=== PATIENT | male | born 1980 | race Caucasian/White ===

== ENCOUNTER 2018-04-26 09:59 | Outpatient (CLI) | payer OTHER, SELFPAY ==
[2018-04-26 10:52] LABS: Abs Immature Grans 0.14 k/cumm (0.0-0.09); Absolute Eosinophil Count 0.19 k/cumm (0.0-0.7); Absolute Lymphocyte Count 1.75 k/cumm (1.2-3.4); Absolute Monocyte Count 0.54 k/cumm (0.11-0.7); Basophils % 0.2; Eosinophils % 1.5; HCT 47.8 % (40.0-50.0); HGB 16.4 g/dL (13.5-17.5); Immature Grans % 1.1; Lymphocytes % 13.6; Mean Corp. HGB Concentration 34.3 g/dL (32.0-36.0); Mean Corpuscular Hemoglobin 31.7 pg (27.0-33.0); Mean Corpuscular Volume 92.5 fL (80-95); Mean Platelet Volume 10.6 fL (8.0-11.0); Monocytes % 4.2; Neutrophils % 79.4; Platelet Count 198 x1000/uL (130-400); RBC 5.17 m/cumm (4.50-6.00); RBC Distribution Width 13.3 % (11.8-14.1); White Blood Cell Count 12.88 k/cumm (4.4-10.8)
[2018-04-26 10:53] LABS: Absolute Basophil Count 0.03 k/cumm (0.0-0.2); Absolute Neutrophil Count 10.23 k/cumm (1.2-6.7)
[2018-04-26 11:20] LABS: ALT 38 U/L (12-78); AST 15 U/L (15-37); Albumin 3.7 g/dL (3.4-5.0); Alkaline Phosphatase 60 U/L (46-116); BUN 15 mg/dL (7-18); Bilirubin, Total 0.6 mg/dL (0.2-1.0); Calcium 9.4 mg/dL (8.5-10.1); Chloride 103 mmol/L (98-107); Glucose 93 mg/dL (70-100); Potassium 4.2 mmol/L (3.5-5.1); Sodium 140 mmol/L (136-145); TSH (W/Ref FT4) 1.65 uIU/mL (0.358-3.74); Total Protein 7.1 g/dL (6.4-8.2)
[2018-04-26 11:30] LABS: T4 8.1 ug/dL (4.5-12.5)
[2018-04-26 22:26] LABS: T3, Total 134 ng/dl (97-169)
[2018-04-27 11:42] LABS: C3 Complement 149 mg/dL (81-157); C4 Complement 30 mg/dL (13-39)
[2018-04-27 11:55] LABS: Thyroglobulin Antibody 26 U/mL (<61); Thyroperoxidase Antibody 39 U/mL (<61)
[2018-04-27 11:58] LABS: dsDNA Ab, IgG <12.3 IU/mL (<30)
[2018-04-27 13:39] LABS: ANA Interpretation Negative (NEGAT)
[2018-04-27 16:56] LABS: C2 Complement, Functional 44 U/mL (25 - 47); Complement, Total 58 U/mL (30 - 75)
[2018-04-28 13:41] LABS: Complement C1q, S 19 mg/dL (12 - 22)
[2018-05-01 16:05] LABS: C1 Esterase Inhib, Functional >90 %of norm
== END 2018-04-26 10:19 ==
PROVIDERS: PCP Family Medicine; Visit Provider Nurse Practitioner Adult Health
DX: T78.3XXA Angioneurotic edema, initial encounter (principal)
CPT/HCPCS: 36415; 80053; 86376; 83520; 84436; 84443; 84480; 85025; 86038; 86160; 86161; 86162; 86225

== ENCOUNTER 2018-09-30 15:20 | Emergency (ER) | payer MEDICAID, SELFPAY ==
[2018-09-30 15:23] VITALS: BP 104/91; PULSE 125; RESP 18; TEMP 37.1; O2SAT 95
[2018-09-30] MEDS: diphenhydrAMINE 25 MG CAP 50 MG PO (15:56)
[2018-09-30] MEDS: predniSONE 40 MG, predniSONE 10 MG 50 MG PO (15:57)
[2018-09-30 16:14] VITALS: BP 113/67; PULSE 103; RESP 16; TEMP 36.8; O2SAT 98
--- NOTE | 2018-09-30 16:15 | W.ED.GENAD ---
Discharge Plan Disposition Patient Disposition: HOME Condition: Good Discharge Details Chief Complaint: RashLesion Clinical Impression: Hives, GERD (gastroesophageal reflux disease) Primary Care Provider: Juarez Palacios ED Provider: Judson Fernandez Home Meds and New Rx's Prescriptions: New prednisone 50 MG tablet 50 mg PO DAILY Qty: 5 RF: 0 epinephrine [EpiPen 2-Dago] 0.3 MG/0.3 ML auto-injector 0.3 mg IJ PRN PRNQty: 2 RF: 5 sucralfate [Carafate] 100 mg/mL suspension 10 ml PO QID Qty: 420 RF: 0 No Action Vyvanse 60 MG capsule 60 mg PO DAILY Qty: 30 RF: 0 Discharge Instructions Instructions: Urticaria (ED), Gastroesophageal Reflux Disease (ED) Additional Instructions: You have notable hives. Please continue to take 25 mg of Benadryl every 6 hours. Please take the steroid as directed. I will give you an EpiPen prescription, only uses if you have worsening of your symptoms in conjunction with throat swelling, difficulty breathing, severe unremitting GI diarrhea or persistent vomiting. If you do use the EpiPen return immediately for reassessment. Please avoid any spicy foods or tomato-based foods. Please take the Carafate for your mild esophageal reflux. We will set up a referral with the [facility] for dermatology. If you notice any worsening of your symptoms, or any new symptoms such as vomiting, diarrhea, fever, chills, shortness of breath, chest pain, numbness, weakness, or fainting , please return immediately to the emergency department for reevaluation. Please follow up with your primary care provider as soon as possible for reassessment and reevaluation. As always, it was a pleasure participating in your medical care today. Referrals: Juarez Palacios MD [Primary Care Provider] - Discharge Data Discharge Date/Time-TO BE ENTERED AT DEPARTURE: 09/30/18 16:27 Medical Decision Making Is a pleasant 38-year-old male who was recently released from residential who presents for evaluation of hives. The patient has had hives multiple times in his life over his body. His last ones have been present for the last few days. New medication is TXA which was prescribed by the residential system. Unknown reasoning for this. Exam demonstrates idiopathic urticarial lesions over his body. No oral or genital lesions. No current clinical evidence of staph scalded skin syndrome, erythema multiforme, erythema migrans, toxic epidermal necrolysis, Smith-Mook syndrome, Kawasaki-like rash, meningococcemia, pemphigus vulgaris, or necrotizing fasciitis. No medical evidence of anaphylaxis. No evidence of superimposed infection. Patient will be given an extended course of steroids, recommend continued antihistamines at home. We will give an EpiPen for general home use as he is probably a person who has a higher risk of anaphylaxis to other things. Currently there is no clinical evidence of anaphylaxis whatsoever. He was also complaining of some left upper quadrant abdominal pain. He was given a GI cocktail and had complete resolution of his symptoms. We will attempt to schedule outpatient dermatological follow-up. We discussed red flags which to return. I have extensively reviewed the treatment plan and discharge instructions with the patient and their family. I have addressed all patient concerns at this time. The patient and family was made aware of what symptoms to monitor for that would warrant a return to the emergency department. Discussed the plan with the patient and family, they demonstrate verbal understanding and agreement with our assessment and plan at this time. HPI General Date/Time Provider Initiated Documentation: 09/30/18 15:34. HPI Narrative: This is a 38-year-old male with a past medical history of chronic hives, who was recently just released from residential, who presents today for evaluation of hives. He states that over the past 6 to 8 months he has had occasional intermittent hives in residential. While in residential he was given intermittent prednisone, but states that more recently he was started on tranexamic acid, which was confirmed by his present prescription list. He is also on Vyvanse which she has been on for quite some time and is unchanged. He states that the hives are similar to previous exacerbations. He denies any aggravating components. He denies any recent long workouts, increase in temperatures, sweaty exercising, recent medication changes except for the TXA which was started not long ago, he denies any new detergents, creams or washes. He denies any lesions in his mouth or on his genitalia. He denies any lesions on his palms or soles. He denies any history of anaphylaxis. He states that although this episode of hives are fairly severe they have been this bad in the past. He has not seen a finished cloth examiner. He also does complain of mild left epigastric pain. He states that it is a burning-like sensation. Worsened with certain spicy food types. He has no other complaints at this time. Related Data Home Medications Medication Instructions Recorded Confirmed lisdexamfetamine [Vyvanse] 60 mg PO DAILY #30 tab-cap 03/09/16 epinephrine [Epipen 2-Dago] 0.3 mg IJ PRN PRN #2 auto.injct 09/30/18 prednisone 50 mg PO DAILY #5 tab 09/30/18 sucralfate [Carafate] 10 ml PO QID #420 ml 09/30/18 Previous Rx's Medication Instructions Recorded epinephrine [Epipen 2-Dago] 0.3 mg IJ PRN PRN #2 auto.injct 09/30/18 prednisone 50 mg PO DAILY #5 tab 09/30/18 sucralfate [Carafate] 10 ml PO QID #420 ml 09/30/18 Allergies Allergy/AdvReac Type Severity Reaction Status Date / Time No Known Allergies Allergy Unverified 09/30/18 15:27 General Stated Complaint: RashLesion KRISTINE: 3 Review of Systems Review of Systems All systems reviewed & are unremarkable except as noted in HPI and below PFSH Medical History ADHD (Acute) Fracture, mandible (Acute) Traumatic brain injury (Acute) Anxiety (Chronic) Family History Mother Asthma Father Emphysema lung Sister No problems noted. Grandfather No problems noted. Grandfather No problems noted. Grandmother Essential hypertension Grandmother No problems noted. Son No problems noted. Social History Smoking/Tobacco Use Status: Current every day Tobacco Type: cigarettes Alcohol Intake: never Substance use type: does not use Additional Social history: pt is not alone to assess privately Exam Narrative Exam Narrative: 1.Const: Well-nourished, Well-developed, appearing stated age 2.Eyes: PERRL, no conjunctival injection, and symmetrical lids. 3.ENT: Atraumatic external nose and ears. Moist MM. Neck: Symmetric, trachea midline, No thyromegaly. 4.CVS: +S1/S2, No murmurs or gallops. Peripheral pulses 2+ and equal in all extremities. Brisk capillary refill in all extremities. 5.RESP: Unlabored respiratory effort. Clear to auscultation bilaterally. No wheezes rales or rhonchi 6.GI: Soft, Nontender/Nondistended, No hepatosplenomegaly. No guarding or rebound. 7.MSK: Normocephalic/Atraumatic, Extremities w/o deformity or ttp No cyanosis or clubbing, Normal movement of all extremities 8.Skin: Warm, Dry. No lesions in the mouth, tongue, or in the posterior oropharynx. No lesions on the palms or soles. No lesions on the glans penis or the mucosa. Patient's body demonstrates large urticarial-like lesions that are well demarcated, no evidence of significant warmth. Diameter of lesions ranges from 10 cm 20 cm in various places. Areas are pruritic. Negative Nikolsky sign. No large vesicles or bulla. No palpable purpura. No oral lesions. No mucosal lesions. No evidence of severe cellulitis. No evidence of vaccine preventable rash. 9.Neuro: tibco developer II-XII grossly intact. Sensation grossly intact, no focal neurologic deficits. 10.Psych: (AAO) x3. Appropriate mood and affect Course Vital Signs Temperature 37.1 C 09/30/18 15:23 Pulse 125 H 09/30/18 15:23 Respiratory Rate 18 09/30/18 15:23 Blood Pressure 104/91 H 09/30/18 15:23 Pulse Oximetry 95 09/30/18 15:23 Temperature 36.8 C 09/30/18 16:14 Temperature Source Temporal Artery Scan 09/30/18 16:14 Pulse 103 H 09/30/18 16:14 Respiratory Rate 16 09/30/18 16:14 Respiratory Effort 09/30/18 15:26 Blood Pressure 113/67 09/30/18 16:14 Pulse Oximetry 98 09/30/18 16:14 Oxygen Delivery Method Room Air 09/30/18 16:14 Oxygen Flow Rate 0 09/30/18 16:14 Pain Level 10 09/30/18 15:23
--- NOTE | 2018-10-03 12:37 | PDOC.ERCMPRO ---
Care Management Progress Note 10/03-Dr. Fernandez requested assistance with a dermatology appt as soon as possible for hives. Patients PCP is Dr. Palacios. Referral faxed to [facility] requesting they make the dermatology follow up.
== END 2018-09-30 16:27 | disposition home or self-care (01) ==
PROVIDERS: Emergency Provider Student in an Organized Health Care Education/Training Program; PCP Family Medicine
DX: L50.1 Idiopathic urticaria (principal); K21.9 Gastro-esophageal reflux disease without esophagitis; R10.12 Left upper quadrant pain
CPT/HCPCS: 99283; J7512

== ENCOUNTER 2018-10-11 13:50 | Outpatient (CLI) | payer MEDICAID, SELFPAY ==
[2018-10-11 14:56] LABS: C-Reactive Protein 0.55 mg/dL (0.0-0.3)
[2018-10-11 15:14] LABS: ESR 10 MM/HR (0-15)
[2018-10-12 09:52] LABS: HCT 45.3 % (40.0-50.0); HGB 15.3 g/dL (13.5-17.5); Mean Corp. HGB Concentration 33.8 g/dL (32.0-36.0); Mean Corpuscular Hemoglobin 31.1 pg (27.0-33.0); Mean Corpuscular Volume 92.1 fL (80-95); Mean Platelet Volume 11.2 fL (8.0-11.0); Platelet Count 269 x1000/uL (130-400); RBC 4.92 m/cumm (4.50-6.00); RBC Distribution Width 14.1 % (11.8-14.1); White Blood Cell Count 13.67 k/cumm (4.4-10.8)
[2018-10-12 10:03] LABS: ALT 53 U/L (12-78); AST 26 U/L (15-37); Albumin 2.8 g/dL (3.4-5.0); Alkaline Phosphatase 74 U/L (46-116); Anion Gap 12.6 mmol/L (3-11); BUN 17 mg/dL (7-18); Bilirubin, Total 0.4 mg/dL (0.2-1.0); CO2 24.4 mmol/L (21.0-32.0); CREATININE 0.94 mg/dL (0.70-1.30); Calcium 9.3 mg/dL (8.5-10.1); Chloride 103 mmol/L (98-107); Glucose 117 mg/dL (70-100); Sodium 140 mmol/L (136-145)
[2018-10-12 12:37] LABS: Hepatitis C Ab w Rflx HCV PCR Negative (NEGAT)
== END 2018-10-11 14:10 ==
PROVIDERS: PCP Family Medicine
DX: T78.40XA Allergy, unspecified, initial encounter (principal); B18.2 Chronic viral hepatitis C
CPT/HCPCS: 36415; 80053; 85027; 85652; 86803; 86140

== ENCOUNTER 2019-03-05 12:57 | Emergency (ER) | payer MEDICAID, SELFPAY ==
[2019-03-05 12:59] VITALS: BP 124/71; PULSE 92; TEMP 36.7; O2SAT 98
--- NOTE | 2019-03-05 13:24 | W.ED.GENAD ---
Discharge Plan Disposition Patient Disposition: HOME Condition: Stable Discharge Details Chief Complaint: DentalOral Clinical Impression: Dental infection Primary Care Provider: Guru John ED Provider: Yessenia Castillo Home Meds and New Rx's Prescriptions: New penicillin V potassium 500 mg tablet 500 mg PO QID Qty: 27 RF: 0 Continued albuterol sulfate [Ventolin HFA] 90 mcg/actuation HFA aerosol inhaler 2 puff IH Q4H PRN (Reason: shortness of breath or wheezing) Qty: 8.5 RF: 1 cetirizine 10 mg tablet 10 mg PO DAILY Qty: 90 RF: 3 Vyvanse 60 mg capsule 60 mg PO QAM MDD 60mg Qty: 30 RF: 0 montelukast [Singulair] 10 mg tablet 10 mg PO QPM Qty: 90 RF: 3 epinephrine [EpiPen 2-Dago] 0.3 MG/0.3 ML auto-injector 0.3 mg IJ PRN PRNQty: 2 RF: 5 ibuprofen [Advil] 200 mg Tablet 1,000 mg PO PRN PRNRF: 0 Discharge Instructions Instructions: Penicillin V (By mouth), Oxycodone/Acetaminophen (By mouth), Dental Abscess (ED) Additional Instructions: Please return immediately to the emergency department if you develop any new or worsening symptoms or if you become otherwise concerned. It is extremely important that you attend your scheduled appointment with your dentist tomorrow morning, and also that you call soon as possible to make an appointment to be seen in follow-up for this visit by her primary care doctor. You have been given 1 Percocet in the emergency department and 1 to bring home and takes night at bedtime. Do not take the Percocet within 6 hours of being given the first dose in the emergency department, I do not take with any other sedating medications. Do not drive, operate machinery, or make important decisions while taking Percocet. Do not take any additional Tylenol while taking Percocet. Stand Alone Forms: Work Release Referrals: Guru John [Primary Care Provider] - Discharge Data Discharge Date/Time-TO BE ENTERED AT DEPARTURE: 03/05/19 14:15 Medical Decision Making Kali erazo a 38-year-old man with a history of asthma, urticaria presenting to the emergency department with dental pain since yesterday and previously broken tooth. On exam patient is well and nontoxic appearing. Poor dentition throughout, tooth 7 broken and discolored with erythema of the surrounding gingiva, no fluctuance or edema, no discharge. No other intraoral lesion. Grossly nonfocal on neurologic exam. Concern for dental infection. Exam/history is not consistent with abscess or other deep space infection, meningitis, impending airway compromise. Plan for penicillin. Will give 1 Percocet here, patient is accompanied by his girlfriend he will give more at home, and one Percocet to take tonight at bedtime. I had a lengthy discussion with patient regarding safe opiate use, home care, return to emergency department precautions including red flags for which to return, and importance of outpatient follow-up. Patient verbalized understanding of the plan was amenable. All questions were answered. Medical Records Medical records reviewed: Yes I reviewed the patient's medical records. HPI General Mode of arrival: ambulatory. Date/Time Provider Initiated Documentation: 03/05/19 13:24. Limitations to Documentation: no limitations. Information obtained by: patient, RN notes reviewed and old records reviewed. HPI Narrative: Kali Dickinson is a 38-year-old man with a history of asthma, urticaria presenting to the emergency department dental pain. Patient reports that he has poor dentition, and broke 1 of his front teeth in the past. Patient reports that he has a dental appointment for this scheduled for 745 tomorrow morning. He reports that yesterday he developed severe pain in this tooth that radiates into his cheek. He denies any other pain, fevers, shortness of breath, cough, vomiting, diarrhea, numbness, weakness, visual changes, difficulty swallowing. Has been eating and drinking as usual without issue. No recent illness. Related Data Home Medications Medication Instructions Recorded Confirmed epinephrine [EpiPen 2-Dago] 0.3 mg IJ PRN PRN #2 auto.injct 09/30/18 03/05/19 albuterol sulfate 90 mcg/actuation 2 puff IH Q4H PRN #8.5 gm 10/16/18 03/05/19 aerosol inhaler cetirizine 10 mg tablet 10 mg PO DAILY #90 tab 10/16/18 03/05/19 montelukast 10 mg tablet 10 mg PO QPM #90 tab 12/20/18 03/05/19 lisdexamfetamine 60 mg capsule 60 mg PO QAM #30 cap MDD 60mg 01/10/19 03/05/19 ibuprofen [Advil] 1,000 mg PO PRN PRN 03/05/19 03/05/19 penicillin V potassium 500 mg PO QID #27 tab 03/05/19 Previous Rx's Medication Instructions Recorded epinephrine [EpiPen 2-Dago] 0.3 mg IJ PRN PRN #2 auto.injct 09/30/18 albuterol sulfate 90 mcg/actuation 2 puff IH Q4H PRN #8.5 gm 10/16/18 aerosol inhaler cetirizine 10 mg tablet 10 mg PO DAILY #90 tab 10/16/18 montelukast 10 mg tablet 10 mg PO QPM #90 tab 12/20/18 lisdexamfetamine 60 mg capsule 60 mg PO QAM #30 cap MDD 60mg 01/10/19 penicillin V potassium 500 mg PO QID #27 tab 03/05/19 Allergies Allergy/AdvReac Type Severity Reaction Status Date / Time sulfamethoxazole Allergy Intermediate Verified 03/05/19 13:01 [From Bactrim] trimethoprim [From Bactrim] Allergy Intermediate Verified 03/05/19 13:01 General Stated Complaint: DentalOral KRISTINE: 4 Review of Systems Narrative: Constitutional: denies fevers Eyes: denies eye pain ENT: denies facial pain, sore throat, pain or difficulty swallowing, reports dental pain as per HPI Cardiovascular: denies chest pain Respiratory: denies SOB, cough GI: denies abdominal pain, vomiting, diarrhea : denies flank pain MSK: denies back pain, neck pain, arthralgias, myalgias Skin: denies rash Neuro: denies headaches PFSH Medical History ADHD (Acute) Anxiety (Chronic) Fracture, mandible (Acute) Traumatic brain injury (Acute) Family History Mother Asthma Father Emphysema lung Sister No problems noted. Maternal Grandfather No problems noted. Paternal Grandfather No problems noted. Maternal Grandmother Essential hypertension Paternal Grandmother No problems noted. Son No problems noted. Sister No problems noted. Sister No problems noted. Social History Smoking/Tobacco Use Status: Current every day Tobacco Type: cigarettes Tobacco: How many years used: 20 Smokeless tobacco user: chewing tobacco Quit status: considering quitting Second Hand Exposure: Yes Alcohol Intake: former Drug use: Never Substance use type: does not use Caregiver/Support person: No Household members: none Housing: house Communication Needs: None Pets and animals: Yes Pets and animals: cat(s), dog(s), fish and other Details: rabbits Sexually active: Yes Do you think of yourself as: straight/heterosexual Current gender identity: male What is your relationship status?: refused to answer How often do you talk on the phone with friends or family?: decline to answer How often do you get together with friends or relatives?: once per week How often do you attend restoration or baptist services?: decline to answer Do you belong to any clubs or organized social groups?: decline to answer Panel score (0-1 are the most socially isolated patients): 0 What type of physical activity do you participate in: none and other Details: work Duration: < 15 minutes/day Frequency: 1-2 times per week Giselle/Anabaptism: Yazidi Special giselle needs: No Seatbelt use: sometimes Drive intox or ride w/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 No other intraoral lesion, handling secretions without issue Eyes: conjunctiva normal, sclera normal, pupils 3mm b/l Neck: no stridor, normal ROM, trachea midline, no lymphadenopathy Resp: normal work of breathing Cardio: normal rate, normal rhythm Skin: warm, dry, normal color, no rash Neuro: alert, not altered, grossly non-focal, normal tone Ext: Moving all extremities equally Psych: normal mood, normal affect, normal behavior Course Vital Signs Vital signs: Vital Signs Temperature 36.7 C 03/05/19 12:59 Pulse 92 H 03/05/19 12:59 Blood Pressure 124/71 03/05/19 12:59 Pulse Oximetry 98 03/05/19 12:59 Temperature 36.7 C 03/05/19 12:59 Temperature Source Skin 10/28/19 12:59 Pulse 92 H 03/05/19 12:59 Respiratory Effort 03/05/19 13:04 Blood Pressure 124/71 03/05/19 12:59 Blood Pressure Position Sitting 03/05/19 12:59 Pulse Oximetry 98 03/05/19 12:59 Oxygen Delivery Method Room Air 03/05/19 12:59 Oxygen Flow Rate 0 03/05/19 12:59 Pain Level 10 03/05/19 13:22
[2019-03-05] MEDS: oxyCODONE 5 mg/Acetaminophen 325 mg TAB 1 TAB PO ×2 (14:10)
[2019-03-05] MEDS: Penicillin V POTASSIUM 500 MG TAB PO (14:10)
== END 2019-03-05 14:15 | disposition home or self-care (01) ==
PROVIDERS: Emergency Provider Student in an Organized Health Care Education/Training Program; PCP Family Medicine
DX: K04.7 Periapical abscess without sinus (principal)
CPT/HCPCS: 99283

== ENCOUNTER 2021-02-20 09:21 | Outpatient (REF) | payer MEDICAID, SELFPAY ==
[2021-02-21 15:32] LABS: COVID-19 RT-PCR UVMMC Result Negative (Negative)
== END 2021-02-20 09:22 | disposition home or self-care (01) ==
LOC: LBN 09:21
PROVIDERS: PCP Family Medicine; Visit Provider Family Medicine
DX: Z20.822 Contact with and (suspected) exposure to COVID-19 (principal)
CPT/HCPCS: U0003

== ENCOUNTER 2022-01-28 18:06 | Emergency (ER) | payer MEDICAID, SELFPAY ==
[2022-01-28 18:09] VITALS: BP 133/83; PULSE 98; RESP 18; TEMP 37; O2SAT 99
--- NOTE | 2022-01-28 18:23 | ED.GENADUL_ITS ---
Discharge Plan Disposition Patient Disposition: HOME Condition: Improving Discharge Details Clinical Impression: Allergic angioedema Primary Care Provider: Kelly Ovalle ED Provider: Goran Harden Home Meds and New Rx's Prescriptions: New famotidine 20 mg tablet 20 mg PO DAILY 7 Days Qty: 7 0RF prednisone 50 mg tablet 50 mg PO DAILY 5 Days Qty: 5 0RF Continued bupropion HCl [Wellbutrin XL] 150 mg tablet extended release 24 hr 150 mg PO QAM Qty: 90 1RF guanfacine 3 mg tablet extended release 24 hr 3 mg PO DAILY Qty: 28 3RF Xerac AC 6.25 % solution 1 applic topical 4XW Qty: 35 0RF cetirizine 10 mg tablet 10 mg PO DAILY Qty: 90 3RF montelukast [Singulair] 10 mg tablet 10 mg PO QPM Qty: 90 3RF epinephrine [EpiPen 2-Dago] 0.3 mg/0.3 mL auto-injector 0.3 mg IJ PRN PRN (Reason: anaphylaxis) Qty: 2 5RF albuterol sulfate [Ventolin HFA] 90 mcg/actuation HFA aerosol inhaler 2 puff IH Q4H PRN (Reason: shortness of breath or wheezing) Qty: 8.5 1RF lisdexamfetamine 70 mg capsule 70 mg PO QAM MDD 70mg Qty: 28 0RF Discharge Instructions Additional Instructions: May use Benadryl 25 to 50 mg at bedtime. Take famotidine and prednisone as prescribed until finished. Continue routine medications. Be aware of environmental antigens that may be causing allergic reaction. Medical Decision Making 41-year-old male with a history of angioedema. States he has had episodes all over his body. This morning he awoke to itching right forehead, he itched it and then developed edema throughout the course of the day that has been pe rsistent. No fever. No eye pain. No change to vision. Patient exam is consistent with urticaria/angioedema of the right periorbital region. We will treat with a burst of steroids and antihistamines. He is stable and appropriate for outpatient management. HPI General Mode of arrival: ambulatory . Date/Time Provider Initiated Documentation: 01/28/22 18:07 . Limitations to Documentation: no limitations . Information obtained by: patient . History of Present Illness 41 year old M presents to the emergency department with the chief complaint of Right eye periorbital edema today, described as moderate and similar to prior episodes, and is localized to the head and face. Patient reports no radiation. Patient started experiencing this hour(s) and it has been constant. No relieving factors improve symptom(s), No exacerbating factors reported . Patient notes denies chest pain and shortness of breath. Patient did receive the following treatments prior to arrival, none Related Data Home Medications Medication Instructions Recorded Confirmed albuterol sulfate 90 mcg/actuation 2 puff inhalation Q4H PRN 02/20/21 01/28/22 aerosol inhaler (Ventolin HFA) shortness of breath or wheezing #8.5 grams cetirizine 10 mg tablet 10 mg PO DAILY #90 tabs 02/20/21 01/28/22 epinephrine 0.3 mg/0.3 mL 0.3 mg (0.3 mL) IJ PRN PRN 02/20/21 01/28/22 injection, auto-injector (EpiPen anaphylaxis ##2 2-Dago) montelukast 10 mg tablet 10 mg PO QPM allergic symptoms #90 02/20/21 01/28/22 (Singulair) tabs aluminum chloride in alcohol 6.25 1 applic topical 4XW #35 mL 11/27/21 01/28/22 % topical solution (Xerac AC) bupropion HCl 150 mg 24 hr tablet, 150 mg PO QAM #90 tabs 11/27/21 01/28/22 extended release (Wellbutrin XL) guanfacine 3 mg tablet,extended 3 mg PO DAILY #28 tabs 11/27/21 01/28/22 release 24 hr famotidine 20 mg tablet 20 mg PO DAILY 7 days #7 tabs 01/28/22 lisdexamfetamine 70 mg capsule 70 mg PO QAM #28 caps 01/28/22 01/28/22 prednisone 50 mg tablet 50 mg PO DAILY 5 days #5 tabs 01/28/22 Previous Rx's Medication Instructions Recorded albuterol sulfate 90 mcg/actuation 2 puff inhalation Q4H PRN 02/20/21 aerosol inhaler (Ventolin HFA) shortness of breath or wheezing #8.5 grams cetirizine 10 mg tablet 10 mg PO DAILY #90 tabs 02/20/21 epinephrine 0.3 mg/0.3 mL 0.3 mg (0.3 mL) IJ PRN PRN 02/20/21 injection, auto-injector (EpiPen anaphylaxis ##2 2-Dago) montelukast 10 mg tablet 10 mg PO QPM allergic symptoms #90 02/20/21 (Singulair) tabs aluminum chloride in alcohol 6.25 1 applic topical 4XW #35 mL 11/27/21 % topical solution (Xerac AC) bupropion HCl 150 mg 24 hr tablet, 150 mg PO QAM #90 tabs 11/27/21 extended release (Wellbutrin XL) guanfacine 3 mg tablet,extended 3 mg PO DAILY #28 tabs 11/27/21 release 24 hr famotidine 20 mg tablet 20 mg PO DAILY 7 days #7 tabs 01/28/22 lisdexamfetamine 70 mg capsule 70 mg PO QAM #28 caps 01/28/22 prednisone 50 mg tablet 50 mg PO DAILY 5 days #5 tabs 01/28/22 Allergies Allergy/AdvReac Type Severity Reaction Status Date / Time sulfamethoxazole Allergy Intermediate Verified 01/28/22 18:12 [From Bactrim] trimethoprim [From Bactrim] Allergy Intermediate Verified 01/28/22 18:12 General Stated Complaint: EyeProblem KRISTINE: 4 Review of Systems Narrative: 6 systems reviewed and otherwise negative PFSH All Active Problems Allergic angioedema (Acute) Anxiety (Chronic) Has a clinician - Marie Quinteros in [place] Urticaria (Chronic) ADHD (attention deficit hyperactivity disorder), combined type (Chronic 10/09/15) had ADHD as a child, untreated. Started lisdexamphetamine as an adult for treatment. Depression (Chronic 08/01/15) Smoker (Chronic 09/07/12) Medical History Angio-edema Fracture of mandible, closed History of traumatic brain injury had injury at age 30; no follow up care. Second degree hemorrhoids (08/21/15) Family History Mother Asthma Father Emphysema lung Sister No problems noted. Maternal Grandfather No problems noted. Paternal Grandfather No problems noted. Maternal Grandmother Essential hypertension Paternal Grandmother No problems noted. Son No problems noted. Sister No problems noted. Sister No problems noted. Social History Smoking/Tobacco Use Status: Current every day Tobacco Type: cigarettes Tobacco: How many years used: 20 Smokeless tobacco user: chewing tobacco Quit status: considering quitting Second Hand Exposure: Yes Counseling given: provider counseling Smoking risk assessment performed?: Yes Alcohol Intake: former Drug use: Never Substance use type: does not use Caregiver/Support person: No Household members: none Housing: house Communication Needs: None Education Level: high school current occupation: self employed in concrete construction Pets and animals: Yes Pets and animals: cat(s), dog(s), fish and other Details: rabbits Sexually active: Yes Do you think of yourself as: straight/heterosexual Current gender identity: male What is your relationship status?: refused to answer How often do you talk on the phone with friends or family?: decline to answer How often do you get together with friends or relatives?: once per week How often do you attend lutheran or moravian services?: decline to answer Do you belong to any clubs or organized social groups?: decline to answer Panel score (0-1 are the most socially isolated patients): 0 What type of physical activity do you participate in: none and other Details: work Duration: < 15 minutes/day Frequency: 1-2 times per week Giselle/Mormon: Latter-Day Special giselle needs: No Seatbelt use: sometimes Drive intox or ride w/intox patient transportation driver: No Additional Social history: pt is not alone to assess privately Exam Narrative Exam Narrative: GEN: awake, alert, oriented 3. Pleasant, well groomed, interactive. HEAD: Normocephalic, atraumatic ENT: Mucous membranes moist, oropharynx unremarkable, External ear exam unremarkable EYES: PERRL, EOMI, right periorbital edema. Globe is unremarkable. NECK: Full ROM, no URSULA, no menigismus CHEST/RESP: Nontender, clear to auscultation bilateral, no wheeze/rhonchi/rales CARDIOVASCULAR: RRR, no murmur, rub jannette. 2+ Rad pulse bilateral ABDOMEN: Soft, nontender, no mass. +Bowel sounds EXT: Full ROM, no edema, no rash Neuro: Grossly normal neurologic exam, conversant, interactive. Psych: Speech fluent, thoughts congruent, affect normal Course Vital Signs Vital signs: Vital Signs Temperature 37.0 C 01/28/22 18:09 Pulse 98 H 01/28/22 18:09 Respiratory Rate 18 01/28/22 18:09 Blood Pressure 133/83 01/28/22 18:09 Pulse Oximetry 99 01/28/22 18:09 Temperature 37.0 C 01/28/22 18:09 Temperature Source Temporal Artery Scan 01/28/22 18:09 Pulse 98 H 01/28/22 18:09 Respiratory Rate 18 01/28/22 18:09 Respiratory Effort Non-Labored 01/28/22 18:14 Blood Pressure 133/83 01/28/22 18:09 Blood Pressure Position Sitting 01/28/22 18:09 Pulse Oximetry 99 01/28/22 18:09 Oxygen Delivery Method Room Air 01/28/22 18:09 Oxygen Flow Rate 0 01/28/22 18:09 Pain Level 8 01/28/22 18:09 Comment 01/28/22 18:09
[2022-01-28] MEDS: predniSONE 20 MG TAB 60 MG PO (18:35)
[2022-01-28] MEDS: Famotidine 20 MG TAB PO (18:35)
== END 2022-01-28 18:36 | disposition home or self-care (01) ==
PROVIDERS: Emergency Provider Emergency Medicine; PCP Family Medicine
DX: T78.3XXA Angioneurotic edema, initial encounter (principal); F17.210 Nicotine dependence, cigarettes, uncomplicated; F17.220 Nicotine dependence, chewing tobacco, uncomplicated; X58.XXXA Exposure to other specified factors, initial encounter
CPT/HCPCS: 99283; 99284; J7512

== ENCOUNTER 2022-07-09 14:02 | Emergency (ER) | payer MEDICAID, SELFPAY ==
[2022-07-09 14:05] VITALS: BP 133/83; PULSE 117; RESP 18; TEMP 36.8; O2SAT 96
--- NOTE | 2022-07-09 14:37 | W.ED.GENAD ---
Discharge Plan Disposition Patient Disposition: Home Condition: Stable Discharge Details Chief Complaint: Cellulitis Clinical Impression: Rash Primary Care Provider: Kelly Ovalle ED Provider: Rohit Seaman Home Meds and New Rx's Prescriptions: No Action epinephrine [EpiPen 2-Dago] 0.3 mg/0.3 mL auto-injector 0.3 mg IJ PRN PRN (Reason: anaphylaxis) Qty: 2 5RF albuterol sulfate [Ventolin HFA] 90 mcg/actuation HFA aerosol inhaler 2 puff IH Q4H PRN (Reason: shortness of breath or wheezing) Qty: 8.5 1RF bupropion HCl [Wellbutrin XL] 150 mg tablet extended release 24 hr 150 mg PO QAM Qty: 90 1RF guanfacine 3 mg tablet extended release 24 hr 3 mg PO DAILY Qty: 28 3RF hydroxyzine pamoate [Vistaril] 25 mg capsule 25 mg PO BID Qty: 60 3RF montelukast [Singulair] 10 mg tablet 10 mg PO QPM Qty: 90 3RF lisdexamfetamine 70 mg capsule 70 mg PO QAM MDD 70mg Qty: 28 0RF Discharge Instructions Instructions: Acute Rash (ED) Additional Instructions: Please follow with your primary care physician, we have given you a referral to also see a multimedia instructional designer. Medical Decision Making 41-year-old male history of urticaria, possible prior angioedema, presents with bilateral leg swelling noted to have symmetrical nearly mirror image areas of induration and erythema beginning at ankles going to mid thigh bilaterally slightly warm nontender no purpura petechia vesicles or skin breakdown afebrile no respiratory symptoms. Tachycardia likely related to irritation. Lower suspicion for bilateral cellulitis given discrete areas involved that are symmetric without source of injury. Will trial dexamethasone famotidine and Benadryl. Likely home with close follow-up and possible dermatologic referral. 15: 22 minimal relief with medication however no progression of symptoms. No systemic signs of toxicity infection or trauma. Patient will be given dermatology referral, home care instructions and return precautions HPI General Date/Time Provider Initiated Documentation: 07/09/22 14:04. HPI Narrative: 41-year-old male history of prior urticaria/angioedema presents with induration redness and pain to bilateral lower extremities for the past several days. Denies recent injury. Denies new environmental exposure. Recently completed a course of oral antibiotics. No respiratory symptoms. Related Data Home Medications Medication Instructions Recorded Confirmed albuterol sulfate 90 mcg/actuation 2 puff inhalation Q4H PRN 02/05/22 07/09/22 aerosol inhaler (Ventolin HFA) shortness of breath or wheezing #8.5 grams epinephrine 0.3 mg/0.3 mL 0.3 mg (0.3 mL) IJ PRN PRN 02/05/22 07/09/22 injection, auto-injector (EpiPen anaphylaxis ##2 2-Dago) bupropion HCl 150 mg 24 hr tablet, 150 mg PO QAM #90 tabs 05/12/22 07/09/22 extended release (Wellbutrin XL) guanfacine 3 mg tablet,extended 3 mg PO DAILY #28 tabs 05/12/22 07/09/22 release 24 hr hydroxyzine pamoate 25 mg capsule 25 mg PO BID #60 caps 05/12/22 07/09/22 (Vistaril) lisdexamfetamine 70 mg capsule 70 mg PO QAM #28 caps 05/12/22 07/09/22 montelukast 10 mg tablet 10 mg PO QPM allergic symptoms #90 05/12/22 07/09/22 (Singulair) tabs Previous Rx's Medication Instructions Recorded albuterol sulfate 90 mcg/actuation 2 puff inhalation Q4H PRN 02/05/22 aerosol inhaler (Ventolin HFA) shortness of breath or wheezing #8.5 grams epinephrine 0.3 mg/0.3 mL 0.3 mg (0.3 mL) IJ PRN PRN 02/05/22 injection, auto-injector (EpiPen anaphylaxis ##2 2-Dago) bupropion HCl 150 mg 24 hr tablet, 150 mg PO QAM #90 tabs 05/12/22 extended release (Wellbutrin XL) guanfacine 3 mg tablet,extended 3 mg PO DAILY #28 tabs 05/12/22 release 24 hr hydroxyzine pamoate 25 mg capsule 25 mg PO BID #60 caps 05/12/22 (Vistaril) lisdexamfetamine 70 mg capsule 70 mg PO QAM #28 caps 05/12/22 montelukast 10 mg tablet 10 mg PO QPM allergic symptoms #90 05/12/22 (Singulair) tabs Allergies Allergy/AdvReac Type Severity Reaction Status Date / Time sulfamethoxazole Allergy Intermediate Verified 07/09/22 14:12 [From Bactrim] trimethoprim [From Bactrim] Allergy Intermediate Verified 07/09/22 14:12 General Stated Complaint: Cellulitis KRISTINE: 4 Review of Systems Narrative: Review of Systems Constitutional: negative Eyes: negative ENT: negative Cardiovascular: negative Respiratory: negative Gastrointestinal: negative : negative Musculoskeletal: negative Skin: Leg rash Neurologic: negative Psych: negative PFSH All Active Problems (Updated 07/09/22 @ 15:23 by Rohit Seaman MD) Anxiety (Chronic) Has a clinician - Marie Quinteros in [place] Smoker (Chronic 09/07/12) Depression (Chronic 08/01/15) ADHD (attention deficit hyperactivity disorder), combined type (Chronic 10/09/15) had ADHD as a child, untreated. Started lisdexamphetamine as an adult for treatment. Urticaria (Chronic) Rash (Acute) Medical History Angio-edema Fracture of mandible, closed History of traumatic brain injury had injury at age 30; no follow up care. Second degree hemorrhoids (08/21/15) Family History Mother Asthma Father Emphysema lung Sister No problems noted. Maternal Grandfather No problems noted. Paternal Grandfather No problems noted. Maternal Grandmother Essential hypertension Paternal Grandmother No problems noted. Son No problems noted. Sister No problems noted. Sister No problems noted. Social History (Updated 02/09/22 @ 06:32 by Briana Montoya) Smoking/Tobacco Use Status: Current every day Tobacco Type: cigarettes Tobacco: How many years used: 25 Quit status: considering quitting Second Hand Exposure: Yes Counseling given: provider counseling and support medications Smoking risk assessment performed?: Yes Alcohol Intake: current Alcohol Intake frequency: a few times a week Alcohol type: beer Drug use: Rarely Substance use type: marijuana Caregiver/Support person: No Household members: none Housing: house Communication Needs: None Education Level: high school current occupation: self employed in concrete construction Pets and animals: Yes Pets and animals: dog(s), fish and other Details: rabbits Sexually active: Yes Do you think of yourself as: straight/heterosexual Current gender identity: male What is your relationship status?: never How often do you talk on the phone with friends or family?: once per week How often do you get together with friends or relatives?: three or more times per week How often do you attend religious or synagogue services?: decline to answer Do you belong to any clubs or organized social groups?: no Panel score (0-1 are the most socially isolated patients): 1 What type of physical activity do you participate in: none and other Details: work Duration: < 15 minutes/day Frequency: 1-2 times per week Giselle/Protestant: Anglican Special giselle needs: No Seatbelt use: sometimes Drive intox or ride w/intox star route mail driver: No Do you feel safe at home: Yes Do you feel safe in your relationship?: Yes Additional Social history: His parents are living in his house - causes stress. Exam Narrative Exam Narrative: Physical Examination General: alert, awake, cooperative, resting comfortably, no acute distress HEENT: normocephalic, atraumatic; PERRL, EOM intact, conjunctiva normal; no nasal discharge; moist mucous membranes, oral and pharyngeal mucosa normal, tolerating secretions Neck: supple, trachea midline; full ROM Chest: normal to inspection Respiratory: normal respiratory effort, speaking in full sentences, clear to auscultation, no wheezing, rales or rhonchi Cardiac: regular rate, regular rhythm, S1S2 intact, no murmurs rubs or gallops GI: abdomen soft, non-tender, non-distended; no palpable mass or hepatosplenomegaly Skin: Symmetric induration and erythema from level of ankles to mid thighs bilaterally no fluctuance no skin breakdown no vesicles no purpura no petechia Neuro: AAOx3, normal speech, moving all extremities Extremities: Full range of motion ambulatory without assistance Psych: Appropriate mood and affect Course Vital Signs Vital signs: Vital Signs Temperature 36.8 C 07/09/22 14:05 Pulse 117 H 07/09/22 14:05 Respiratory Rate 18 07/09/22 14:05 Blood Pressure 133/83 07/09/22 14:05 Pulse Oximetry 96 07/09/22 14:05 Temperature 36.8 C 07/09/22 14:05 Temperature Source Tympanic 07/09/22 14:05 Pulse 117 H 07/09/22 14:05 Respiratory Rate 18 07/09/22 14:05 Respiratory Effort Normal, Non-Labored 07/09/22 14:10 Blood Pressure 133/83 07/09/22 14:05 Blood Pressure Position Sitting 07/09/22 14:05 Pulse Oximetry 96 07/09/22 14:05 Oxygen Delivery Method Room Air 07/09/22 14:05 Oxygen Flow Rate 0 07/09/22 14:05 Pain Level 10 07/09/22 14:05 PAWSS Have you Been Recently Intoxicated or Drunk Within the Last 30 days?: Yes Have you Ever Experienced Previous Episodes of Alcohol Withdrawal?: No Have you ever Experienced Withdrawal Seizures?: No Have you ever Experienced Delirium Tremens(DT)s?: No Have you ever undergone Alcohol Rehabilitation Treatment (i.e, inpt ot outpatient treatment programs)?: Yes Have you ever Experienced Blackouts?: Yes Have you ever Combined Alcohol with other Downers within the last 90 days?: No Have you ever Combined Alcohol with any other Substance of Abuse during the last 90 days?: No Positive Blood Alcohol level on Presentation? [PCS.BAL]: No Evidence of Increased Autonomic Activity (i.e. HR>120, tremor, sweating, agitation, nausea)?: No Result: 3
[2022-07-09] MEDS: diphenhydrAMINE 25 MG CAP PO (14:45)
[2022-07-09] MEDS: Famotidine 20 MG TAB PO (14:45)
[2022-07-09] MEDS: Dexamethasone 10 MG/ML VIAL IVP (14:45)
--- NOTE | 2022-07-09 15:24 | NUR.NOTE ---
Nursing Note: PT info given to care management for dermatology referral/follow-up next week for uticaria. Rachel, ED
[2022-07-09 15:28] VITALS: BP 120/69; PULSE 120; RESP 18; TEMP 36.9; O2SAT 96
--- NOTE | 2022-07-12 12:49 | PDOC.ERCMPRO ---
- If Service Date Differs Date of service: 07/12/22 Time of Service: 12:49 Care Management Progress Note CM faxed referral to [facility], per provider request. Referral was sent as 'medically urgent' (72H-2weeks), as provider requested appointment within one week. Fax was sent to [phone].
== END 2022-07-09 15:30 | disposition home or self-care (01) ==
PROVIDERS: Emergency Provider Emergency Medicine; PCP Family Medicine
DX: R21 Rash and other nonspecific skin eruption (principal); R22.43 Localized swelling, mass and lump, lower limb, bilateral
CPT/HCPCS: 96372; 99284; J1100

== ENCOUNTER 2025-01-07 05:17 | Emergency (ER) | payer MEDICAID, SELFPAY ==
[2025-01-07 05:23] VITALS: BP 111/75; PULSE 75; RESP 18; TEMP 37.1; O2SAT 98
--- NOTE | 2025-01-07 06:59 | W.ED.GENAD ---
Discharge Plan Disposition Patient Disposition: Home Discharge Details Clinical Impression: Abscess of buttock, right Primary Care Provider: Kelly Ovalle ED Provider: Juarez Jones Home Meds and New Rx's Prescriptions: New clindamycin HCl [Cleocin HCl] 300 mg capsule 300 mg PO Q8H 7 Days Qty: 21 0RF hydrocodone-acetaminophen 5-325 mg tablet 1 tab PO Q6H PRN (Reason: pain) Qty: 16 0RF Continued albuterol sulfate [Ventolin HFA] 90 mcg/actuation HFA aerosol inhaler 2 puff IH Q4H PRN (Reason: shortness of breath or wheezing) Qty: 8.5 1RF cetirizine [Allergy Relief (cetirizine)] 10 mg tablet 10 mg PO DAILY PRN epinephrine [EpiPen 2-Dago] 0.3 mg/0.3 mL auto-injector 0.3 mg IJ PRN PRN (Reason: anaphylaxis) Qty: 2 5RF naltrexone microspheres 380 mg suspension,extended rel recon 380 mg IM Q4W Qty: 1 12RF lisdexamfetamine 70 mg capsule 70 mg PO QAM MDD 70mg Qty: 28 0RF hydroxyzine pamoate [Vistaril] 25 mg capsule 25 mg PO BID Qty: 60 3RF montelukast [Singulair] 10 mg tablet 10 mg PO QPM Qty: 90 3RF Discharge Instructions Additional Instructions: You were seen in the emergency department for your abscess. An incision and drainage was performed. As we discussed if you get fevers nausea vomiting or any other concerns please return to the emergency department. Otherwise, please follow-up with the general surgeon as previously discussed. Please take your antibiotics as directed. For your pain please take medications as follows: 1. Take acetaminophen (Tylenol), 1,000 mg (two 500 mg tabs) every 6 hours [2. Take ibuprofen (Advil), 400 mg every 6 hours.] Referrals: Val Rahman MD [ [facility] STAFF PHYSICIAN, Surgery] HPI General Date/Time Provider Initiated Documentation: 01/07/25 05:32. HPI Narrative: MDM This is an overall very well-appearing normothermic and not tachycardic 44-year-old male with large right cutaneous buttocks abscess for which I consulted Dr. Rahman from general surgery to perform incision and drainage and outpatient follow-up. Patient has been eating treats from the gas station but I placed an n.p.o. order. Will provide patient 1 L of IV fluids clindamycin and obtain basic labs. I ordered ketorolac for pain. Patient has been nauseous but has not had any fevers and has vital signs reassuring against sepsis so I did not draw blood cultures nor treat empirically with broad-spectrum antibiotics. Patient has no pain out of proportion to suggest necrotizing soft tissue infection I did not feel he required a CT scan. Furthermore given no obvious anal involvement I did not feel that patient required cross-sectional imaging. 8:22 AM Patient metabolic panel showing no MARIAH. Mild hyperglycemia but no anion gap. Normal bicarbonate?test not consistent with DKA. Marked significant leukocytosis worse compared to prior. No anemia. No thrombocytopenia. 9:49 AM I was in touch again with Dr. Rahman who performed incision and drainage. She sent prescription for patient and will arrange outpatient follow-up. HPI The patient presents for a boil on his bottom. He reports the onset of the boil approximately 3 to 4 days ago. He considered making an attempt to drain it using a razor blade, which unfortunately had rust on it. This led to an infection, causing significant pain. He has no prior history of similar boils and reports no fever. Additionally, he mentions feeling nauseous and having a decreased appetite. He confirms that there are no other boils present on his body. Denies IV drug use. Exam General: Well-appearing in no acute distress speaking in complete sentences. Head: Normocephalic, atraumatic. Eye:[Pupils equal, round reactive to light.] Extraocular eye movements intact. No conjunctival injection. No scleral icterus. Ear, nose, mouth, throat: Grossly normal inspection. Normal voice, handling secretions normally. Neck: Trachea midline. Cardiovascular: Well-perfused distal extremities. Respiratory: Nonlabored respiration. Gastrointestinal: Nondistended abdomen. Musculoskeletal: No edema. Moving all 4 extremities spontaneously. Skin: On the right buttocks there is a large approximately 5 x 4 cm indurated tender abscess with mild surrounding erythema as shown in the photo as follows: There does not appear to be any anal involvement. Neurologic: Alert and appropriate, no apparent acute deficits. Psychiatric: Mood and manner are appropriate. Grooming and personal hygiene are appropriate. Related Data Home Medications ?Medication ?Instructions ?Recorded ?Confirmed albuterol sulfate 90 mcg/actuation 2 puff inhalation Q4H PRN 02/05/22 01/07/25 aerosol inhaler (Ventolin HFA) shortness of breath or wheezing #8.5 grams cetirizine 10 mg tablet (Allergy 10 mg PO DAILY PRN 08/04/22 01/07/25 Relief (cetirizine)) epinephrine 0.3 mg/0.3 mL 0.3 mg (0.3 mL) IJ PRN PRN 12/09/23 01/07/25 injection, auto-injector (EpiPen anaphylaxis ##2 2-Dago) hydroxyzine pamoate 25 mg capsule 25 mg PO BID #60 caps 02/10/24 01/07/25 (Vistaril) lisdexamfetamine 70 mg capsule 70 mg PO QAM #28 caps 02/10/24 01/07/25 montelukast 10 mg tablet 10 mg PO QPM allergic symptoms #90 02/10/24 01/07/25 (Singulair) tabs naltrexone microspheres 380 mg 380 mg IM Q4W #1 ea 02/10/24 01/07/25 intramuscular suspension,extended release clindamycin HCl 300 mg capsule 300 mg PO Q8H 7 days #21 caps 01/07/25 (Cleocin HCl) hydrocodone 5 mg-acetaminophen 325 1 tab PO Q6H PRN pain #16 tabs 01/07/25 mg tablet Previous Rx's ?Medication ?Instructions ?Recorded albuterol sulfate 90 mcg/actuation 2 puff inhalation Q4H PRN 02/05/22 aerosol inhaler (Ventolin HFA) shortness of breath or wheezing #8.5 grams epinephrine 0.3 mg/0.3 mL 0.3 mg (0.3 mL) IJ PRN PRN 12/09/23 injection, auto-injector (EpiPen anaphylaxis ##2 2-Dago) hydroxyzine pamoate 25 mg capsule 25 mg PO BID #60 caps 02/10/24 (Vistaril) lisdexamfetamine 70 mg capsule 70 mg PO QAM #28 caps 02/10/24 montelukast 10 mg tablet 10 mg PO QPM allergic symptoms #90 02/10/24 (Singulair) tabs naltrexone microspheres 380 mg 380 mg IM Q4W #1 ea 02/10/24 intramuscular suspension,extended release clindamycin HCl 300 mg capsule 300 mg PO Q8H 7 days #21 caps 01/07/25 (Cleocin HCl) hydrocodone 5 mg-acetaminophen 325 1 tab PO Q6H PRN pain #16 tabs 01/07/25 mg tablet Allergies Allergy/AdvReac Type Severity Reaction Status Date / Time sulfamethoxazole (From Allergy Intermediate edema Verified 01/07/25 05:28 Bactrim) trimethoprim (From Bactrim) Allergy Intermediate edema Verified 01/07/25 05:28 General Stated Complaint: RashLesion KRISTINE: 3 Course Vital Signs Vital signs: Vital Signs Temperature 37.1 C 01/07/25 05:23 Pulse 75 01/07/25 05:23 Respiratory Rate 18 01/07/25 05:23 Blood Pressure 111/75 01/07/25 05:23 Pulse Oximetry 98 01/07/25 05:23 Temperature 37.1 C 01/07/25 05:23 Temperature Source Oral 01/07/25 05:23 Pulse 75 01/07/25 05:23 Respiratory Rate 18 01/07/25 05:23 Blood Pressure 111/75 01/07/25 05:23 Blood Pressure Position Supine 01/07/25 05:23 Pulse Oximetry 98 01/07/25 05:23 Oxygen Delivery Method Room Air 01/07/25 05:23 Oxygen Flow Rate 0 01/07/25 05:23 Pain Level 10 01/07/25 05:23 PFSH All Active Problems (Updated 01/07/25 @ 09:51 by Juarez Jones MD) Abscess of buttock, right (Acute) Abscess, gluteal, right (Acute) Sheltered homelessness (Acute) Alcohol use disorder, moderate, in early remission, dependence (Acute) Urticaria (Chronic) ADHD (attention deficit hyperactivity disorder), combined type (Chronic 10/09/15) had ADHD as a child, untreated. Started lisdexamphetamine as an adult for treatment. Depression (Chronic 08/01/15) Smoker (Chronic 09/07/12) Anxiety (Chronic) Has a clinician - 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 Fracture of mandible, closed Second degree hemorrhoids (08/21/15) Family History Mother Asthma Father Emphysema lung Sister No problems noted. Maternal Grandfather No problems noted. Paternal Grandfather No problems noted. Maternal Grandmother Essential hypertension Paternal Grandmother No problems noted. Son No problems noted. Sister No problems noted. Sister No problems noted. Social History Smoking/Tobacco Use Status: Current every day Tobacco Type: cigarettes Tobacco: How many years used: 25 Quit status: considering quitting Second Hand Exposure: Yes Counseling given: provider counseling and support medications Smoking risk assessment performed?: Yes Alcohol Intake: former Drug use: Occasionally Substance use type: crack/cocaine Details: last used crack/cocaine around midnight tonight 01/07/25 Caregiver/Support person: No Household members: none Housing: house Communication Needs: None Education Level: high school current occupation: self employed in concrete construction Pets and animals: Yes Pets and animals: dog(s), fish and other Details: rabbits Sexually active: Yes Do you think of yourself as: straight/heterosexual Current gender identity: male What is your relationship status?: never How often do you talk on the phone with friends or family?: once per week How often do you get together with friends or relatives?: three or more times per week How often do you attend christian or buddhism services?: decline to answer Do you belong to any clubs or organized social groups?: no Panel score (0-1 are the most socially isolated patients): 1 What type of physical activity do you participate in: none and other Details: work Duration: < 15 minutes/day Frequency: 1-2 times per week Giselle/Mormon: Mandaeism Special giselle needs: No Seatbelt use: sometimes Drive intox or ride w/intox lokie driver: No Do you feel safe at home: Yes Do you feel safe in your relationship?: Yes Additional Social history: His parents are living in his house - causes stress.
[2025-01-07 07:18] VITALS: BP 94/61; PULSE 73; RESP 14; O2SAT 100
[2025-01-07] MEDS: Lidocaine 2% Multi-Dose W/EPI 1/100,000 20 ML VIAL IJ (07:19)
[2025-01-07] MEDS: Normal Saline 1,000 ML 1000 ML IV (07:30)
[2025-01-07] MEDS: CLINDAMYCIN 600 MG/50 ML BAG 100 MG IVPB (07:34)
[2025-01-07] MEDS: Ketorolac 15 MG/ML VIAL IVP (07:35)
[2025-01-07 07:45] LABS: Abs Immature Grans 0.08 10^3/uL (0.0-0.06); HCT 42.8 % (40.0-50.0); HGB 14.2 g/dL (13.5-17.5); Immature Grans % 0.5 %; MCH 30.4 pg (27.0-33.0); MCHC 33.2 % (32.0-36.0); MCV 92 fL (80-95); MPV 10.3 fL (8.0-11.0); Platelet Count 229 10^3/uL (130-400); RBC 4.67 10^6/uL (4.36-5.78); RDW 13.3 % (11.8-14.1); RDW-SD 45.0 fL; WBC 15.89 10^3/uL (4.4-10.8)
[2025-01-07 07:52] LABS: Anion Gap 7.9 mmol/L (3-11); BUN 18 mg/dL (7-18); CO2 29.1 mmol/L (21.0-32.0); Calcium 9.2 mg/dL (8.5-10.1); Chloride 101 mmol/L (98-107); Estimated GFR 108.01 (mL/min/1.73m2); Glucose 116 mg/dL (74-106); Potassium 3.6 mmol/L (3.5-5.1); Sodium 138 mmol/L (136-145)
[2025-01-07] MEDS: MORPHine 4 MG/ML SYR IVP (08:54)
--- NOTE | 2025-01-07 09:29 | SCONE_ITS ---
Date of service: 01/07/25 Time of Service: 09:29 Assessment and Plan Assessment and plan (1) Abscess, gluteal, right: Status: Acute Assessment and plan: Abscess incised and drained. Small amount of purulence only, significant cellulitis and induration remains and will be treated with antibiotic. Ok to discharge home as he has no high risk factors such as uncontrolled diabetes or signs of systemic illness. clindamycin 300mg q8h for 7 days sent, and norco #16 tablets sent to pharmacy. My office will rreach out tomorrow to arrange follow up for him for packing changes. Instructions provided for site to remain clean and dry. return precautions reviewed. Pt tolerated procedure well. History of Present Illness History of Present Illness Chief Complaint: abscess R buttock Narrative: 44yo M with a gluteal abscess for last 3 days. This morning he woke up and had unbearable pain. Says he couldnt sleep all night from the pain. 3 days ago he noticed a skin tete that looked like a spider bite. His friend who wa sleeping in the same location had a similar spot on her abdomen. His buttock where this skin bump started grew more and more painful and swollen. It is now hard, large, and painful constantly. nothing makes it better. sitting on it makes it worse. His stomach hurts but otherwise no systemic symptoms. No fever. has never had this before. He denies diabetes. Allergic to bactrim he thinks. Review of Systems All systems reviewed & are unremarkable except as noted in HPI and below PFSH All Active Problems (Updated 01/07/25 @ 09:37 by Val Rahman MD) Abscess, gluteal, right (Acute) Sheltered homelessness (Acute) Alcohol use disorder, moderate, in early remission, dependence (Acute) Urticaria (Chronic) ADHD (attention deficit hyperactivity disorder), combined type (Chronic 10/09/15) had ADHD as a child, untreated. Started lisdexamphetamine as an adult for treatment. Depression (Chronic 08/01/15) Smoker (Chronic 09/07/12) Anxiety (Chronic) Has a clinician - 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 Fracture of mandible, closed Second degree hemorrhoids (08/21/15) Family History Mother Asthma Father Emphysema lung Sister No problems noted. Maternal Grandfather No problems noted. Paternal Grandfather No problems noted. Maternal Grandmother Essential hypertension Paternal Grandmother No problems noted. Son No problems noted. Sister No problems noted. Sister No problems noted. Social History Smoking/Tobacco Use Status: Current every day Tobacco Type: cigarettes Tobacco: How many years used: 25 Quit status: considering quitting Second Hand Exposure: Yes Counseling given: provider counseling and support medications Smoking risk assessment performed?: Yes Alcohol Intake: former Drug use: Occasionally Substance use type: crack/cocaine Details: last used crack/cocaine around midnight tonight 01/07/25 Caregiver/Support person: No Household members: none Housing: house Communication Needs: None Education Level: high school current occupation: self employed in concrete construction Pets and animals: Yes Pets and animals: dog(s), fish and other Details: rabbits Sexually active: Yes Do you think of yourself as: straight/heterosexual Current gender identity: male What is your relationship status?: never How often do you talk on the phone with friends or family?: once per week How often do you get together with friends or relatives?: three or more times per week How often do you attend congregational or restoration services?: decline to answer Do you belong to any clubs or organized social groups?: no Panel score (0-1 are the most socially isolated patients): 1 What type of physical activity do you participate in: none and other Details: work Duration: < 15 minutes/day Frequency: 1-2 times per week Giselle/Episcopal: Holiness Special giselle needs: No Seatbelt use: sometimes Drive intox or ride w/intox dedicated regional driver: No Do you feel safe at home: Yes Do you feel safe in your relationship?: Yes Additional Social history: His parents are living in his house - causes stress. Exam Narrative Exam Narrative: awake, NAD eomi, MMM midline trachea, neck is symmetric PULM: normal resp effort, equal chest rise with respiration, no wheezing audible CARDIAC: normal PMI, no jvd, regular rate, normal perfusion abdomen is nondistended. extremities are without deformity, normal movement of all four extremities speech is clear and coherent mood and affect are congruent, no focal neurological deficits skin without rash R inner gluteal skin with 8cm by 5cm indurated area with central skin necrosis measuring 1cm round. Tender, warm, erythematous. Skin is edematous over the site. Purple skin discoloration around the central scar. Results Last Vital Signs Temp 98.8 F 01/07/25 05:23 Pulse 73 01/07/25 07:18 Resp 14 01/07/25 07:18 BP 94/61 L 01/07/25 07:18 Pulse Ox 100 01/07/25 07:18 Labs 01/07/25 07:30 01/07/25 07:30 Labs: Laboratory Results - last 24 hr 01/07/25 07:30 WBC 15.89 H RBC 4.67 Hgb 14.2 Hct 42.8 MCV 92 MCH 30.4 MCHC 33.2 RDW 13.3 Plt Count 229 MPV 10.3 Immature Gran % 0.5 Neutrophils % 86.7 Lymphocytes % 5.5 Monocytes % 6.8 Eosinophils % 0.3 Basophils % 0.2 Nucleated RBC % 0.0 Absolute Neutrophils 13.78 H Absolute Lymphocytes 0.87 L Absolute Monocytes 1.08 H Absolute Eosinophils 0.05 Absolute Basophils 0.03 Sodium 138 Potassium 3.6 Chloride 101 Carbon Dioxide 29.1 Anion Gap 7.9 BUN 18 Creatinine 0.9 Est GFR (CKD-EPI 2020) 108.01 Glucose 116 H Calcium 9.2 Procedures Abscess I/D Site: other (right inner gluteal abscess) Side (if applicable): right Sedation/analgesia: other (Morphine 4mg IV push once at start of procedure for analgesia) Anesthetic used: with epi (1% lidocaine with epinephrine 5mL total) Technique: incised with #11 blade (Skin prepped with betadine. Site anesthetized with local. 11 blade incised skin and 18g needle used to ensure no deeper abscess. Only 2mL of hazy cloudy fluid drained. Fat is indurated and there is hardened sebaceous material in the cavity. cavity is 2cm by 0.5cm by 1.5cmWound irrigated and packed. ) Amount of fluid (mL): 2 Irrigation: Yes Packing used?: iodoform (1/4 iodoform gauze packing strip packed into abscess cavity)
[2025-01-07 09:44] VITALS: BP 102/64; PULSE 67; O2SAT 100
== END 2025-01-07 09:58 | disposition home or self-care (01) ==
PROVIDERS: Emergency Provider Emergency Medicine; PCP Family Medicine
DX: L02.31 Cutaneous abscess of buttock (principal); R11.0 Nausea
CPT/HCPCS: 10061; 36415; 80048; 96365; 96375; 99284; 85025; J0737; J1885; J2004; J2270